=== PATIENT | male | born 1970 | race Caucasian/White ===

== ENCOUNTER 2017-10-26 16:31 | Inpatient (IN) | payer OTHER ==
[~2017-10-26] VITALS: Ht 182.9 cm; Wt 90.5 kg
[2017-10-26 19:39] LABS: CHLORIDE 105 mEq/L (99-109); POTASSIUM 4.4 mEq/L (3.7-5.4); SODIUM 138 mEq/L (136-147)
[2017-10-26 19:41] LABS: GLUCOSE 95 mg/dL (70-99)
[2017-10-26 19:42] LABS: BASOPHIL (%) 0.5 % (0-1); BASOPHIL COUNT 0.1 K/uL (0-0.1); EOSINOPHIL (%) 0.9 % (0-5); EOSINOPHIL COUNT 0.1 K/uL (0-0.3); HEMATOCRIT 35.1 % (38.0-50.0); HEMOGLOBIN 11.3 G/DL (12.5-16.6); IMMATURE GRANULOCYTE (%) 0.5 % (0.0-0.7); LYMPHOCYTE (%) 20.7 % (15-42); LYMPHOCYTE COUNT 2.3 K/uL (1.0-2.8); MCH 28.7 PG (29.0-34.0); MCHC 32.2 G/DL (30.0-36.0); MCV 89.1 FL (86-99); MONOCYTE (%) 4.9 % (3-12); MONOCYTE COUNT 0.5 K/uL (0-0.8); NEUTROPHIL (%) 72.5 % (45-76); RBC DIS.WIDTH-CV 15.9 % (11.8-14.6); RBC DIS.WIDTH-SD 52.4 % (39-53); RED BLOOD COUNT 3.94 M/uL (4.00-5.50)
[2017-10-26 19:44] LABS: SERUM ETHYL ALCOHOL < 10 mg/dL
[2017-10-26 19:45] LABS: CREATININE 0.9 mg/dL (0.6-1.3); GFR ESTIMATE (CALCULATED) > 59 mL/min/ (58.99-99999)
[2017-10-26 19:46] LABS: AMPHETAMINE NEGATIVE (500 ng/mL); BARBITURATES NEGATIVE (200 ng/mL); BENZODIAZEPINES NEGATIVE (150 ng/mL); BUPRENORPHINE NEGATIVE (10 ng/mL); COCAINE PRESUMPTIVE POSITIVE (150 ng/mL); METHADONE NEGATIVE (200 ng/mL); METHAMPHETAMINE NEGATIVE (500 ng/mL); OPIATES (MORPHINE) NEGATIVE (100 ng/mL); OXYCODONE NEGATIVE (100 ng/mL); PHENCYCLIDINE NEGATIVE (25 ng/mL); PROPOXYPHENE NEGATIVE (300 ng/mL); THC CANNABINOIDS NEGATIVE (50 ng/mL); TRICYCLIC ANTIDEPRESSANTS NEGATIVE (300 ng/mL)
[2017-10-26 19:46] LABS: UREA NITROGEN (BUN) 5 mg/dL (9-23)
[2017-10-26 20:20] LABS: APPEARANCE SL.HAZY ((CLEAR)); BILIRUBIN NEGATIVE; BLOOD NEGATIVE; COLOR YELLOW ((YELLOW)); GLUCOSE (STRIP) NEGATIVE; KETONES NEGATIVE; LEUKOCYTES SMALL; NITRITE POSITIVE; PROTEIN (STRIP) 30; SPECIFIC GRAVITY 1.016 (1.000-1.030)
[2017-10-26 20:26] LABS: BACTERIA 1+ /HPF; EPITHELIAL CELLS NONE SEEN /HPF; MUCUS TRACE /LPF; RED BLOOD CELLS 0-5 /HPF (0-5); WHITE BLOOD CELLS TNTC /HPF (0-5)
[2017-10-26 20:34] LABS: PLAT.SUFFICIENCY ADEQUATE; PLATELET COUNT 216 K/uL (156-360)
[2017-10-27] MEDS ORDERED: STRIBILD TABLE1 EACH PO (00:57)
[2017-10-27] MEDS ORDERED: ZESTRIL2.5 MG PO (01:00)
[2017-10-27] MEDS ORDERED: AMBIEN10 MG PO (01:01)
[2017-10-27] MEDS ORDERED: TRAZODONE HCL100 MG PO (01:02)
[2017-10-27] MEDS ORDERED: DEPAKOTE ER500 MG PO (01:03)
[2017-10-27 01:09] VITALS: BP 125/65
[2017-10-27 08:07] VITALS: BP 128/61
[2017-10-27 16:00] VITALS: BP 125/68
[2017-10-28 07:35] VITALS: BP 127/58
[2017-10-28 16:28] VITALS: BP 107/58
[2017-10-28 21:59] VITALS: BP 119/58
[2017-10-29 07:48] VITALS: BP 111/68
[2017-10-29] MEDS ORDERED: CEPHALEXIN250 MG PO (10:29)
[2017-10-29] MEDS ORDERED: QUETIAPINE FUM200 MG PO (10:29)
== END 2017-10-29 11:24 | disposition home or self-care (01) | DRG 896 ==
LOC: EME 16:31 → 1WEST 20:24 → EDOF 20:24 → 1WEST 10-27 01:00 → ENRESERV 10-27 01:00 → 1WEST 10-29 11:24
PROVIDERS: Physician Assistant
PROC: HZ2ZZZZ Detoxification Services for Substance Abuse Treatment (ICD-10-PCS; principal; 2017-10-26)
DX: F11.23 Opioid dependence with withdrawal (principal); F17.210 Nicotine dependence, cigarettes, uncomplicated; B20 Human immunodeficiency virus [HIV] disease; F32.9 Major depressive disorder, single episode, unspecified; N39.0 Urinary tract infection, site not specified; Z79.899 Other long term (current) drug therapy
CPT/HCPCS: 80048; 81003; 84999; 85025; 90839; 97165 GO; 99281; 99285; G0480; J0572; Q0177